=== PATIENT | male | born 1995 | race Two or more races ===

== ENCOUNTER 2025-04-14 16:05 | Emergency (ER) | payer OTHER ==
[~2025-04-14] VITALS: Ht 185.4 cm; Wt 78.9 kg
[2025-04-14 16:15] VITALS: BP 134/82; PULSE 89; RESP 16; TEMP 98.1; O2SAT 97
--- NOTE | 2025-04-14 16:52 | ED.PDOC ---
Antoniot. trauma (HPI) HPI Comments 29 y/o M, with no prior medical history presents to the ED for CC of right foot pain. Patient states, he has been experiencing right foot pain [id number] with recent blisters appearing to the anterior part of his right foot between the 4th and 5th digits. Patient complains, of current 10/10 pain to his right foot which worsens with moment. Patient denies fall, injury, or trauma. No other symptoms or modifying factors present at this time. Chief Complaint: Lower Extremity Time Seen by MD: 16:40 Primary Care Provider: NONE Reviewed notes: Nurses Notes, Medications, Allergies Allergies: Coded Allergies: NO KNOWN ALLERGIES (Unverified , 04/14/25) Information Source: Patient Mode of Arrival: Ambulatory Severity: Moderate Timing: Months Duration: Since onset Prehospital treatment: None Location: (R) Foot Location of laceration: None Mechanism: Other (spontaneous) Associated signs and symtoms: Other (foot pain) Past Medical History PAST MEDICAL HISTORY: Denies Surgical History (Other): right ankle Family History Family History: Unknown Social History Smoker: Non-Smoker Alcohol: Denies ETOH Use Drugs: Denies Drug Use Lives In: Home Constitutional: denies: chills, diaphoresis, fatigue, fever, malaise, sweats, weakness, others EENTM: denies: blurred vision, double vision, ear bleeding, ear discharge, ear drainage, ear pain, ear ringing, eye pain, eye redness, hearing loss, mouth pain, mouth swelling, nasal discharge, nose bleeding, nose congestion, nose pain, photophobia, tearing, throat pain, throat swelling, voice changes, others Respiratory: denies: cough, hemoptysis, orthopnea, SOB at rest, shortness of breath, SOB with excertion, stridor, wheezing, others Cardiovascular: denies: chest pain, dizzy spells, diaphoresis, Dyspnea on exertion, edema, irregular heart beat, left arm pain, lightheadedness, palpitations, PND, syncope, others Gastrointestinal: denies: abdomen distended, abdominal pain, blood streaked bowels, constipated, diarrhea, dysphagia, difficulty swallowing, hematemesis, melena, nausea, poor appetite, poor fluid intake, rectal bleeding, rectal pain, vomiting, others Genitourinary: denies: burning, dysuria, flank pain, frequency, hematuria, incontinence, penile discharge, penile sore, pain, testicle pain, testicle swelling, urgency, others Neurological: denies: dizziness, fainting, headache, left sided numbness, left sided weakness, numbness, paresthesia, pre-existing deficit, right sided numbness, right sided weakness, seizure, speech problems, tingling, tremors, weakness, others Musculoskeletal: reports: others (right foot); denies: back pain, gout, joint pain, joint swelling, muscle pain, muscle stiffness, neck pain Integumetry: denies: bruises, change in color, change in hair/nails, dryness, laceration, lesions, lumps, rash, wounds, others Allergic/Immunocompromised: denies: Difficulty Healing, Frequent Infections, Hives, Itching, others Hematologic/Lymphatic: denies: anemia, blood clots, easy bleeding, easy bruising, swollen glands, others Endocrine: denies: excessive hunger, excessive sweating, excessive thirst, excessive urination, flushing, intolerance to cold, intolerance to heat, unexplained weight gain, unexplained weight loss, others Psychiatric: denies: anxiety, bipolar disorder, depression, hopeless, panic disorder, schizophrenia, sleepless, suicidal, others All Other Systems: Reviewed and Negative Physical Exam General Appearance: No Apparent Distress, Normal HEENT: Normal ENT Inspection, Pharynx Normal Neck: Full Range of Motion, Non-Tender, Normal, Normal Inspection Respiratory: Chest Non-Tender, Lungs Clear, No Accessory Muscle Use, No Respiratory Distress, Normal Breath Sounds Cardiovascular: No Edema, No Murmur, No Gallop, Normal Peripheral Pulses, Regular Rate/Rhythm Breast Exam: Deferred Gastrointestinal: No Organomegaly, Non Tender, No Pulsatile Mass, Normal Bowel Sounds, Soft Genitalia: Deferred Pelvic: Deferred Rectal: Deferred Extremities: No calf tenderness, Normal capillary refill, Normal inspection, Normal range of motion, Non-tender, No pedal edema Musculoskeletal : Apperance: Normal Neurologic: Alert, conveyor feeder II-XII nml as Tested, No Motor Deficits, Normal Affect, Normal Mood, No Sensory Deficits Cerebellar Function: Normal Reflexes: Normal Skin: Dry, Normal Color, Wounds (5mm wound to right foot between 4th & 5th, erythema to surrounding area, weeping discharge) Lymphatic: No Adenopathy Was a procedure done? Was a procedure done?: No Differential Diagnosis Multiple Trauma: Fractures, Other (ostemyelitis ) Neck Injury: N/A X-Ray, Labs, Meds, VS Vital Signs Date Time Temp Pulse Resp B/P (MAP) Pulse Ox O2 Delivery O2 Flow Rate FiO2 04/14/25 16:15 98.1 89 16 134/82 (99) 97 98.1 X-Ray, Labs, Meds, VS Comment Imaging: X-rays and CT scans were reviewed and interpreted by this provider, imaging shows no fractures and no pathological disease. Pending radiology review. Laboratory: Labs reviewed and interpreted by this provider. No significant abnormalities noted. Patient has prior medical visits reviewed. Med reconciliation performed Vital signs reviewed Time of 1ST Reevaluation: 17:10 Reevaluation 1ST: Unchanged Patient Education/Counseling: Diagnosis, Treatment, Need For Follow Up (Follow up with PCP next available appointment. Return to the emergency department if symptoms worsen.) Family Education/Counseling: No Family Present Departure 1 Departure Time of Disposition: 16:59 Impression: Primary Impression: Cellulitis Qualified Codes: L03.115 - Cellulitis of right lower limb Disposition: 01 HOME / SELF CARE / HOMELESS Condition: Fair e-Prescriptions Ibuprofen Micronized (Ibuprofen) 800 Mg Tab 800 MG PO TID PRN, #30 TAB Prov: NATALIE MICHAEL 04/14/25 Clindamycin Hcl (Clindamycin Hcl) 300 Mg Cap 1 CAP PO TID for 7 Days, #21 CAP Prov: NATALIE MICHAEL 04/14/25 Discharged With: Self Critical Care Note Critical Care Time?: No Stability Stability form required: No Heart Score Heart Score: Heart Score Response (Comments) Value History N/A 0 EKG N/A 0 Age N/A 0 Risk Factors N/A 0 Troponin N/A 0 Total 0 I personally scribed for NATALIE MICHAEL ([email or web address]) on 04/14/25 at 16:52. Electronically submitted by Janell Rowell ([email or web address]). NATALIE MICHAEL Apr 14, 2025 16:52
[2025-04-14] MEDS ORDERED: IBUP-1455 PO (17:00)
[2025-04-14] MEDS ORDERED: CLIN1CAP70 PO (17:00)
--- NOTE | 2025-04-14 17:28 | DVH ---
CLINICAL INDICATION: wound TECHNIQUE: 3 radiographic views of the right foot were obtained. Comparison: None FINDINGS/IMPRESSION: There is no evidence of acute fracture or dislocation. The visualized joint space is well maintained. Plate and screw fixation of the distal fibula and tibi a. The alignment is anatomical. 1 mm round density within the superficial plantar soft tissues of the proximal metatarsals which may be external to the patient or may be artifactual with a small foreign body not excluded. There appears to be small skin defect over the plantar soft tissues of the distal metatarsals.
== END 2025-04-14 19:54 | disposition left against medical advice (07) ==
LOC: ER 16:05
DX: L03.115 Cellulitis of right lower limb (principal); Z98.890 Other specified postprocedural states
CPT/HCPCS: 73630